=== PATIENT | male | born 1940 | race Caucasian/White ===

== ENCOUNTER 2019-03-24 13:59 | Outpatient (CLI) | payer OTHER ==
[2019-03-24 14:04] LABS: APPEARANCE,URINE CLEAR (CLEAR); COLOR,URINE YELLOW (YELLOW); OCCULT BLOOD,URINE 3+ (NEGATIVE); PH URINE 6.5 (5.0 - 8.0); UROBILINOGEN URINE 0.2 Eu (0.2-1.0)
== END 2019-03-24 14:02 ==
LOC: LAB 13:59
PROVIDERS: ATTEND Family Medicine
DX: D64.9 Anemia, unspecified (principal); N39.0 Urinary tract infection, site not specified; N18.3 Chronic kidney disease, stage 3 (moderate)
CPT/HCPCS: 81002; 87086

== ENCOUNTER 2019-03-25 06:55 | Outpatient (CLI) | payer OTHER | END 2019-03-25 06:58 | LOC: CANPRECLI → LAB 06:55 → EDSTATUS 10:41 | PROVIDERS: ATTEND Family Medicine | DX: N39.0 Urinary tract infection, site not specified (principal); L03.312 Cellulitis of back [any part except buttock and flank]; I10 Essential (primary) hypertension | CPT/HCPCS: 36415; 80053; 83036; 85025; P9604 ==

== ENCOUNTER 2019-03-25 09:00 | Outpatient (CLI) | payer OTHER ==
[2019-03-25 08:32] LABS: BASOPHILS % 0.3 % (0.0-1.5); NEUTROPHILS # 5.4 # k/uL (1.4-7.7)
[2019-03-25 08:33] LABS: eGFR (Non-African) 23
[2019-03-25 08:34] LABS: A1C 6.9 % (<5.7)
== END 2019-03-25 09:05 ==
LOC: LAB 09:00
PROVIDERS: ATTEND Family Medicine
DX: L03.312 Cellulitis of back [any part except buttock and flank] (principal); N39.0 Urinary tract infection, site not specified; I10 Essential (primary) hypertension
CPT/HCPCS: 36415; 80053; 83036; 85025; P9604

== ENCOUNTER 2019-03-30 08:05 | Outpatient (CLI) | payer OTHER ==
[2019-03-30 10:18] LABS: BASOPHILS % 0.3 % (0.0-1.5); eGFR (Non-African) 20
== END 2019-03-30 08:10 ==
LOC: LAB 08:05
PROVIDERS: ATTEND Family Medicine
DX: I10 Essential (primary) hypertension (principal); N39.0 Urinary tract infection, site not specified; L03.312 Cellulitis of back [any part except buttock and flank]
CPT/HCPCS: 36415; 80053; 85025